=== PATIENT | male | born 1955 | race Caucasian/White ===

== ENCOUNTER 2018-02-25 19:32 | Emergency (ER) | payer OTHER ==
[2018-02-25 19:45] VITALS: O2SAT 97
--- NOTE | 2018-02-25 20:01 | C.PDOC ---
Chief Complaint (Nursing): Chest Pain Past Medical History Vital Signs: Last Vital Signs Temp 97.7 F 02/25/18 19:41 Pulse 82 02/25/18 19:41 Resp 17 02/25/18 19:41 BP 174/86 H 02/25/18 19:41 Pulse Ox 97 02/25/18 19:41 - Medical History PMH: HTN, Hypercholesterolemia - Social History Hx Alcohol Use: Yes Hx Substance Use: No - Immunization History Hx Tetanus Toxoid Vaccination: No Hx Influenza Vaccination: No Hx Pneumococcal Vaccination: No ED Course And Treatment ECG: Interpreted By Me, Viewed By Me ECG Rhythm: Sinus Rhythm ECG Interpretation: Normal, No Acute Changes Interpretation Of ECG: normal tracings Rate From EC O2 Sat by Pulse Oximetry: 97 Pulse Ox Interpretation: Normal Disposition - Disposition Forms: [facility] (Kazakh)
[2018-02-25] MEDS ORDERED: Sodium Chloride 0.9% 500 ML IV ONE (20:02)
[2018-02-25] MEDS ORDERED: Sucralfate 1 gm/10 ml Oral Susp UD PO STA (20:03)
--- NOTE | 2018-02-25 20:04 | C.PDOC ---
History Of Present Illness 62 year old male presents to the emergency department with complaints of lower substernal and epigastric pain persisting for the past four days. Patient reports one episode of vomiting this morning. Chief Complaint (Nursing): Chest Pain History Per: Patient History/Exam Limitations: no limitations Onset/Duration Of Symptoms: Days (4) Current Symptoms Are (Timing): Still Present Quality: "Pain" Past Medical History Reviewed: Historical Data, Nursing Documentation, Vital Signs Vital Signs: Last Vital Signs Temp 97.7 F 02/25/18 19:41 Pulse 86 02/25/18 21:44 Resp 16 02/25/18 21:44 BP 151/72 H 02/25/18 21:44 Pulse Ox 97 02/25/18 21:44 - Medical History PMH: HTN, Hypercholesterolemia Surgical History: No Surg Hx Family History: States: No Known Family Hx - Social History Hx Alcohol Use: Yes Hx Substance Use: No - Immunization History Hx Tetanus Toxoid Vaccination: No Hx Influenza Vaccination: No Hx Pneumococcal Vaccination: No Review Of Systems Cardiovascular: Positive for: Chest Pain (substernal) Gastrointestinal: Positive for: Vomiting, Abdominal Pain (epigastric) Physical Exam - Physical Exam Appears: Non-toxic, No Acute Distress Respiratory: Normal Breath Sounds Gastrointestinal/Abdominal: Tenderness (mild epigastric tenderness), No Guarding , No Rebound ED Course And Treatment - Laboratory Results Result Diagrams: 02/25/18 20:09 02/25/18 20:09 O2 Sat by Pulse Oximetry: 97 (RA) Pulse Ox Interpretation: Normal Medical Decision Making Medical Decision Making: Plan: EKG CMP Lipase Troponin CBC Protonix 40mg IVP NaCl IV Fluids Zofran 4mg PO Urinalysis Disposition Counseled Patient/Family Regarding: Diagnosis - Disposition Referrals: [facility] [Outside] Disposition: HOME/ ROUTINE Disposition Time: 21:47 Condition: STABLE Prescriptions: Famotidine [Pepcid] 20 mg PO BID #20 tab Instructions: Gastritis, [place] Diet, Acid Reflux (Gastroesophageal Reflux Disease), Adult (DC) Forms: [facility] (Mongolian) - POA Present On Arrival: None - Clinical Impression Clinical Impression: Gastritis, GERD (gastroesophageal reflux disease) - Scribe Statement The provider has reviewed the documentation as recorded by the Scribe (Duarte Stephen) Provider Attestation: All medical record entries made by the Scribe were at my direction and personally dictated by me. I have reviewed the chart and agree that the record accurately reflects my personal performance of the history, physical exam, medical decision making, and the department course for this patient. I have also personally directed, reviewed, and agree with the discharge instructions and disposition.
[2018-02-25 20:15] LABS: BASO # 0.2 K/uL (0.0-0.2); BASO % 0.9 % (0.0-2.0); EOS # 0.1 K/uL (0.0-0.7); EOS % 0.4 % (0.0-4.0); HEMOGLOBIN 17.8 g/dL (12.0-18.0); LYMPH # 1.9 K/uL (1.0-4.3); LYMPH % 11.6 % (20.0-40.0); MEAN CELL VOLUME 90.3 fL (80.0-94.0); MEAN CORPUSCULAR HEMOGLOBIN 32.1 pg (27.0-31.0); MEAN CORPUSCULAR HGB CONC 35.6 g/dL (33.0-37.0); MEAN PLATELET VOLUME 7.9 fL (7.2-11.7); MONO # 0.8 K/uL (0.0-0.8); MONO % 4.8 % (0.0-10.0); NEUT # 13.8 K/uL (1.8-7.0); NEUT % 82.3 % (50.0-75.0); NRBC % 0.8 % (0.0-2.0); RBC 5.54 Mil/uL (4.40-5.90); RED CELL DISTRIBUTION WIDTH 13.4 % (11.5-14.5); WHITE BLOOD COUNT 16.8 K/uL (4.8-10.8)
[2018-02-25] MEDS ORDERED: Sodium Chloride 0.9% 1,000 ML ONE (20:25)
[2018-02-25] MEDS ORDERED: Sucralfate 1 gm/10 ml Oral Susp UD ONE (20:26)
[2018-02-25 20:35] LABS: ALB/GLOB RATIO 1.3 (1.0-2.1); ALBUMIN 4.1 g/dL (3.5-5.0); ALT/SGPT 49 U/L (21-72); AST/SGOT 35 U/L (17-59); BLOOD UREA NITROGEN 10 mg/dL (9-20); CALCIUM 9.6 mg/dl (8.6-10.4); GFR AFRICAN-AMERICAN > 60; GFR NON-AFRICAN AMERICAN > 60; LIPASE 26 U/L (23-300)
[2018-02-25 21:45] VITALS: BP 151/72; PULSE 86; RESP 16
[2018-02-25 22:02] VITALS: TEMP 98.8
--- NOTE | 2018-02-26 19:10 | CARD ---
APPROVED REPORT EKG Measurement Heart [id number] <Conclusion> Normal sinus rhythm Normal ECG
== END 2018-02-25 22:02 | disposition home or self-care (01) ==
LOC: C.ER 19:32
DX: K29.70 Gastritis, unspecified, without bleeding (principal); K21.9 Gastro-esophageal reflux disease without esophagitis
CPT/HCPCS: 80053; 83690; 84484; 85025; 93005; 96374; 99284; C9113; J7040